=== PATIENT | female | born 1930 | race Caucasian/White ===

== ENCOUNTER 2021-09-20 12:57 | Emergency (ER) | payer MEDICARE, BC ==
[2021-09-20 13:03] VITALS: TEMP 98.1
[2021-09-20] MEDS ORDERED: HYDROcodone/APAP 5-325MG 1 EACH TAB PO STA (13:22)
[2021-09-20] MEDS ORDERED: KETOROLAC 15 MG/ML 1 ML VIAL IM STA (13:22)
--- NOTE | 2021-09-20 13:56 | XR ---
EXAMINATION TYPE: XR knee limited bilateral DATE OF EXAM: 09/20/2021 COMPARISON: NONE HISTORY: Pain TECHNIQUE: Two views are submitted. FINDINGS: Severe arthropathy of the bilateral tricompartment space of the knee joints with hypertrophic spurrin g and diffuse osteopenia. There is moderate amount of fluid within the suprapatellar bursa on the lef t and a small amount on the right. Diffuse osteopenia. No acute fracture. No dislocation. IMPRESSION: 1. Severe bilateral osteoarthritis with near complete loss of joint space along the medial compartmen t and patellofemoral joint. 2. Bilateral collections within the suprasellar bursa.
--- NOTE | 2021-09-20 14:20 | ED ---
General Adult HPI - General Chief complaint: Weakness Stated complaint: bilat knee pain Time Seen by Provider: 09/20/21 12:58 Source: patient, RN notes reviewed, old records reviewed Mode of arrival: wheelchair Limitations: no limitations - History of Present Illness Initial comments: Patient is an 89-year-old female with past medical history remarkable for chronic arthritis, asthma who presents emergency Department complaining of acute on chronic bilateral knee pain. Sees orthopedics, Dr. hobbs for her chronic arthritis. Received injections a while back, it is been having worsening pain over the last few weeks. Was seen at outpatient ER without any relief. Presents today for further evaluation again. Has not yet followed up with orthopedics. Denies any new symptoms other than chronic pain. Difficulty with ambulation. Denies any numbness. Denies any weakness. Has no other acute complaint at this time. Has been taking Celebrex for her arthritis. Tylenol has minimal effects. - Related Data Previous Rx's Medication Instructions Recorded HYDROcodone/APAP 5-325MG [[place] 1 tab PO Q6HR PRN 3 Days #12 tab 09/20/21 5-325] Ibuprofen 800 mg PO Q12H PRN 14 Days #28 tab 09/20/21 Allergies Allergy/AdvReac Type Severity Reaction Status Date / Time Penicillins Allergy Dyspnea Verified 09/20/21 12:59 Sulfa (Sulfonamide Allergy Dyspnea Verified 09/20/21 12:59 Antibiotics) Review of Systems ROS Statement: Those systems with pertinent positive or pertinent negative responses have been documented in the HPI. Review of Systems: CONST: Denies fever EYES: Denies blurry vision ENT: Denies nasal congestion C/V: Denies Chest pain RESP: Denies shortness of breath GI: Denies abdominal pain : Denies dysuria SKIN: Denies rash. MSK: Endorses knee pain NEURO: Denies headache ROS Other: All systems not noted in ROS Statement are negative. Past Medical History Past Medical History: No Reported History History of Any Multi-Drug Resistant Organisms: None Reported Past Surgical History: No Surgical Hx Reported Past Psychological History: No Psychological Hx Reported Smoking Status: Never smoker Past Alcohol Use History: None Reported Past Drug Use History: None Reported General Exam - General Exam Comments Initial Comments: General: Appears in no acute distress. HEAD: Normal with no signs of head trauma. EYES: EOMI ENT: Hearing grossly intact RESPIRATORY: No respiratory distress C/V: Regular rate and rhythm, peripheral pulses 2+ and intact in bilateral lower extremities. ABD: Nondistended abdomen EXT: Normal range of motion of bilateral knees. Tenderness to palpation along the bilateral joint lines. Lockman's test negative on both knees. Able to ambulate. SKIN: No rashes or lesions observed on exposed skin. NEURO: Alert and oriented 4. No strength or sensory deficits. Limitations: no limitations Course Vital Signs 09/20/21 13:00 Temperature 98.1 F Pulse Rate 89 Respiratory 16 Rate Blood Pressure 141/75 O2 Sat by Pulse 94 L Oximetry Medical Decision Making - Medical Decision Making Based on the patient's presentation and physical exam, she is presenting for acute on chronic bilateral knee pain likely secondary to arthritis. We will obtain x-rays of bilateral knees. She'll be given analgesia. She was in agreement this plan. X-rays show severe bilateral osteoarthritis of both knees. I discussed the findings with the patient and family. We'll discharge home with additional analgesic medications and instructions follow-up with orthopedics. They were in agreement this plan. I will provide the patient with a prescription for [place], ibuprofen. I instructed the patient to follow up with their PCP in the next 1-3 days. I explained that the patient should return to the emergency department if they experience any worsening symptoms. Strict return precautions were discussed with the patient. The patient expressed understanding of these instructions. I answered all questions that the patient had. The patient was discharged home in good condition with their prescriptions and follow up information. Disposition Clinical Impression: Degenerative arthritis of knee, bilateral Disposition: HOME SELF-CARE Condition: Good Prescriptions: Ibuprofen 800 mg PO Q12H PRN 14 Days #28 tab PRN Reason: Pain HYDROcodone/APAP 5-325MG [[place] 5-325] 1 tab PO Q6HR PRN 3 Days #12 tab PRN Reason: Pain Is patient prescribed a controlled substance at d/c from ED?: Yes Referrals: Joel Yan MD [Primary Care Provider] - 1-2 days Benji Hobbs DO [Doctor of Osteopathic Medicine] - 1-2 days Time of Disposition: 14:15
[2021-09-20 14:36] VITALS: BP 142/84; PULSE 84; RESP 18
== END 2021-09-20 14:36 | disposition home or self-care (01) ==
LOC: EC 12:57
DX: M17.0 Bilateral primary osteoarthritis of knee (principal); Z88.0 Allergy status to penicillin; Z88.2 Allergy status to sulfonamides
CPT/HCPCS: 73560; 99283; 96372; J1885